=== PATIENT | male | born 1960 | race African-American/Black ===

== ENCOUNTER 2018-03-10 17:32 | Emergency (ER) | payer MEDICAID, OTHER ==
[~2018-03-10] VITALS: Ht 188 cm; Wt 140.0 kg
[2018-03-10] MEDS ORDERED: ONDANSETRON HCL 4MG/2ML INJ IV STA (18:52)
[2018-03-10 19:22] LABS: BASOPHILS % 0.2 % (0.0-2.0); EOSINOPHILS % 0.1 % (0.0-5.0); HEMATOCRIT. 44.9 % (42.0-52.0); HEMOGLOBIN. 14.7 g/dL (14.0-18.0); LYMPHOCYTES % 7.9 % (20.0-50.0); MEAN CORPUSCULAR HEMOGLOBIN 29.4 pg (28.0-32.0); MEAN CORPUSCULAR VOLUME 89.7 fL (80.0-94.0); MEAN PLATELET VOLUME 8.9 fl (7.4-10.4); MONOCYTES % 7.8 % (2.0-8.0); PLATELET 196 x1000/uL (130-400); RED BLOOD CELL COUNT 5.01 mill/uL (4.7-6.1); RED CELL DISTRIBUTION WIDTH 14.5 % (11.6-14.6)
[2018-03-10 19:26] LABS: INR 1.1; PROTHROMBIN TIME 10.9 sec (9.1-11.1)
[2018-03-10 19:27] LABS: CHLORIDE 102 mEq/L (98-107)
[2018-03-10 20:08] LABS: CLARITY URINE CLEAR (CLEAR); COLOR URINE YELLOW (YELLOW); KETONES URINE NEGATIVE (NEGATIVE); LEUKOCYTE ESTERASE URINE NEGATIVE (NEGATIVE); NITRITE URINE NEGATIVE (NEGATIVE); OCCULT BLOOD URINE NEGATIVE (NEGATIVE); PH URINE 6.5 (4.5-8.0); PROTEIN URINE NEGATIVE (NEGATIVE); SPECIFIC GRAVITY URINE 1.014 (1.005-1.030); UROBILINOGEN URINE 0.2 E.U./dL (0.2-1.0)
[2018-03-10] MEDS ORDERED: IOHEXOL-350 100 ML BOTTLE ONE (20:24)
[2018-03-10] MEDS ORDERED: MORPHINE SULFATE 4 MG/ML CPJ (NOT FOR IM USE) IV ONE (21:15)
[2018-03-10] MEDS ORDERED: LABETALOL HCL 20MG/4ML CARPUJECT IV ONE (21:15)
[2018-03-10 21:30] VITALS: BP 179/98
[2018-03-10] MEDS ORDERED: LABETALOL HCL 20MG/4ML CARPUJECT IV NR (21:30)
[2018-03-10] MEDS ORDERED: MORPHINE SULFATE 2 MG/ML CPJ (NOT FOR IM USE) IV NR (21:30)
== END 2018-03-10 21:54 | disposition short-term general hospital (02) ==
LOC: ER 17:32
DX: I60.9 Nontraumatic subarachnoid hemorrhage, unspecified (principal); I10 Essential (primary) hypertension
CPT/HCPCS: 36415; 70450; 70496; 80053; 81003; 85025; 85610; 96374; 96375; 99291; J2270; J2405; J3490; Q9967